=== PATIENT | female | born 1990 | race Two or more races ===

== ENCOUNTER 2022-01-28 15:27 | Emergency (ER) | payer OTHER ==
[~2022-01-28] VITALS: Ht 172.7 cm; Wt 68.0 kg
[2022-01-28] MEDS ORDERED: BUSPIRONE HCL15 MG PO (15:39)
== END 2022-01-28 18:35 | disposition home or self-care (01) ==
LOC: ER 15:27
DX: B34.9 Viral infection, unspecified (principal); F32.A Depression, unspecified

== ENCOUNTER 2022-03-27 02:14 | Emergency (ER) | payer OTHER ==
[~2022-03-27] VITALS: Ht 172.7 cm; Wt 68.9 kg
[~2022-03-27 02:14] MED LIST: BUSPIRONE HCL15 MG PO
[2022-03-27] MEDS ORDERED: KETO10TA2 PO (05:41)
[2022-03-27] MEDS ORDERED: ORPHENADRINE C100 MG PO (05:41)
== END 2022-03-27 05:53 ==
LOC: ER 02:14
DX: S39.012A Strain of muscle, fascia and tendon of lower back, initial encounter (principal); V49.50XA Passenger injured in collision with unspecified motor vehicles in traffic accident, initial encounter; Y93.9 Activity, unspecified; Y92.410 Unspecified street and highway as the place of occurrence of the external cause